=== PATIENT | female | born 1955 | race Caucasian/White ===

== ENCOUNTER 2021-05-11 19:20 | Inpatient (IN) | payer OTHER, BC ==
[2021-05-11] MEDS ORDERED: Acetaminophen 500 MG TAB PO PRN (22:45)
[2021-05-11] MEDS ORDERED: Melatonin 3 MG TAB PO SCH (23:00)
[2021-05-11] MEDS ORDERED: Simvastatin 10 MG TAB PO SCH (23:00)
[2021-05-11] MEDS ORDERED: Gabapentin 100 MG CAP PO SCH (23:00)
[2021-05-11] MEDS ORDERED: tiZANidine HCl 4 MG TAB PO SCH (23:00)
[2021-05-11] MEDS: HYDROcodone/Acetaminophen 5/325 mg Tablet PO PRN (23:01)
[2021-05-12 06:10] LABS: #Basophils 0.1 thou/uL (0.0-0.2); #Eosinphils 0.3 thou/uL (0.0-0.7); #Lymphocytes 1.3 thou/uL (1.20-3.40); #Monocytes 0.6 thou/uL (0.11-0.59); #Neutrophils 2.4 thou/uL (1.40-6.50); %Basophils 1.2 % (0.0-1.0); %Eosinophils 7.2 % (0.0-10.0); %Lymphocytes 26.9 % (21.0-51.0); %Monocytes 12.9 % (0.0-10.0); %Neutrophils 51.8 % (42.0-75.0); Hemoglobin 7.8 g/dL (12.0-16.0); Mean Corpuscular Volume 96.8 fL (78.0-98.0); Mean Platelet Volume 5.1 fL (7.4-10.4); Platelet Count 381 thou/uL (130-400); RBC Distribution Width 14.3 % (11.5-14.5); White Blood Cell (WBC) Count 4.7 thou/uL (4.8-10.8)
[2021-05-12 07:21] LABS: SARS-CoV-2 NAA Rapid Test Not Detected (NotDetected)
[2021-05-12] MEDS: Folic Acid 1 MG TAB PO SCH (08:13)
[2021-05-12] MEDS: Multivitamin W/ Minerals 1 TAB PO SCH (08:13)
[2021-05-12] MEDS: Gabapentin 100 MG CAP PO SCH ×3 (08:15→21:31)
[2021-05-12] MEDS: Thiamine 100 MG TAB PO SCH (08:15)
[2021-05-12] MEDS: Aspirin Chewable 81 MG TAB PO SCH (08:21)
[2021-05-12] MEDS: traMADol HCl 50 MG TAB PO PRN (09:00)
[2021-05-12] MEDS: HYDROcodone/Acetaminophen 5/325 mg Tablet PO PRN ×2 (13:59→21:32)
[2021-05-12] MEDS: Nicotine 14 MG PATCH TD SCH (14:03)
[2021-05-12] MEDS: Calcium Carbonate 600 MG + Vit D TAB PO SCH (17:11)
[2021-05-12] MEDS: Melatonin 3 MG TAB PO SCH (21:33)
[2021-05-12] MEDS: tiZANidine HCl 4 MG TAB PO SCH (21:33)
[2021-05-12] MEDS: Simvastatin 10 MG TAB PO SCH (21:33)
[2021-05-13 06:40] LABS: #Basophils 0.1 thou/uL (0.0-0.2); #Eosinphils 0.3 thou/uL (0.0-0.7); #Lymphocytes 1.5 thou/uL (1.20-3.40); #Monocytes 0.6 thou/uL (0.11-0.59); #Neutrophils 2.6 thou/uL (1.40-6.50); %Basophils 1.6 % (0.0-1.0); %Eosinophils 6.4 % (0.0-10.0); %Lymphocytes 29.4 % (21.0-51.0); %Monocytes 10.8 % (0.0-10.0); %Neutrophils 51.8 % (42.0-75.0); Hemoglobin 7.8 g/dL (12.0-16.0); Mean Corpuscular HGB CONC 32.3 g/dL (32.0-36.0); Mean Corpuscular Hemoglobin 31.6 pg (27.0-31.0); Mean Corpuscular Volume 97.7 fL (78.0-98.0); Mean Platelet Volume 5.3 fL (7.4-10.4); Platelet Count 397 thou/uL (130-400); RBC Distribution Width 14.5 % (11.5-14.5); Red Blood Cell (RBC) Count 2.48 mill/uL (4.20-5.40); White Blood Cell (WBC) Count 5.1 thou/uL (4.8-10.8)
[2021-05-13] MEDS: Multivitamin W/ Minerals 1 TAB PO SCH (07:59)
[2021-05-13] MEDS: Gabapentin 100 MG CAP PO SCH ×3 (07:59→21:28)
[2021-05-13] MEDS: Aspirin Chewable 81 MG TAB PO SCH (07:59)
[2021-05-13] MEDS: Calcium Carbonate 600 MG + Vit D TAB PO SCH ×2 (08:00→17:22)
[2021-05-13] MEDS: Thiamine 100 MG TAB PO SCH (08:00)
[2021-05-13] MEDS: HYDROcodone/Acetaminophen 5/325 mg Tablet PO PRN ×2 (08:01→21:28)
[2021-05-13] MEDS: Folic Acid 1 MG TAB PO SCH (08:01)
[2021-05-13] MEDS: Nicotine 14 MG PATCH TD SCH (14:04)
[2021-05-13] MEDS: Melatonin 3 MG TAB PO SCH (21:27)
[2021-05-13] MEDS: tiZANidine HCl 4 MG TAB PO SCH (21:28)
[2021-05-13] MEDS: Simvastatin 10 MG TAB PO SCH (21:31)
[2021-05-14] MEDS: Calcium Carbonate 600 MG + Vit D TAB PO SCH ×2 (08:11→17:56)
[2021-05-14] MEDS: Gabapentin 100 MG CAP PO SCH ×3 (08:11→22:17)
[2021-05-14] MEDS: Aspirin Chewable 81 MG TAB PO SCH (08:11)
[2021-05-14] MEDS: Multivitamin W/ Minerals 1 TAB PO SCH (08:12)
[2021-05-14] MEDS: Folic Acid 1 MG TAB PO SCH (08:12)
[2021-05-14] MEDS: Thiamine 100 MG TAB PO SCH (08:12)
[2021-05-14] MEDS: Nicotine 14 MG PATCH TD SCH (13:50)
[2021-05-14] MEDS: HYDROcodone/Acetaminophen 5/325 mg Tablet PO PRN (22:15)
[2021-05-14] MEDS: tiZANidine HCl 4 MG TAB PO SCH (22:16)
[2021-05-14] MEDS: Melatonin 3 MG TAB PO SCH (22:16)
[2021-05-14] MEDS: Simvastatin 10 MG TAB PO SCH (22:16)
[2021-05-15 06:16] VITALS: BMI 19.5
[2021-05-15] MEDS: Calcium Carbonate 600 MG + Vit D TAB PO SCH ×2 (08:16→17:29)
[2021-05-15] MEDS: Aspirin Chewable 81 MG TAB PO SCH (08:16)
[2021-05-15] MEDS: Thiamine 100 MG TAB PO SCH (08:17)
[2021-05-15] MEDS: Gabapentin 100 MG CAP PO SCH ×3 (08:17→21:32)
[2021-05-15] MEDS: Folic Acid 1 MG TAB PO SCH (08:18)
[2021-05-15] MEDS: Multivitamin W/ Minerals 1 TAB PO SCH (08:18)
[2021-05-15] MEDS: Nicotine 14 MG PATCH TD SCH (14:34)
[2021-05-15] MEDS: HYDROcodone/Acetaminophen 5/325 mg Tablet PO PRN (21:30)
[2021-05-15] MEDS: Simvastatin 10 MG TAB PO SCH (21:31)
[2021-05-15] MEDS: Melatonin 3 MG TAB PO SCH (21:31)
[2021-05-15] MEDS: tiZANidine HCl 4 MG TAB PO SCH (21:31)
[2021-05-16] MEDS: Calcium Carbonate 600 MG + Vit D TAB PO SCH ×2 (07:31→17:39)
[2021-05-16] MEDS: HYDROcodone/Acetaminophen 5/325 mg Tablet PO PRN ×2 (07:31→21:27)
[2021-05-16] MEDS: Gabapentin 100 MG CAP PO SCH ×3 (08:52→21:28)
[2021-05-16] MEDS: Aspirin Chewable 81 MG TAB PO SCH (08:52)
[2021-05-16] MEDS: Multivitamin W/ Minerals 1 TAB PO SCH (08:53)
[2021-05-16] MEDS: Thiamine 100 MG TAB PO SCH (08:53)
[2021-05-16] MEDS: Folic Acid 1 MG TAB PO SCH (08:53)
[2021-05-16 12:27] LABS: #Basophils 0.1 thou/uL (0.0-0.2); #Eosinphils 0.2 thou/uL (0.0-0.7); #Lymphocytes 1.2 thou/uL (1.20-3.40); #Monocytes 0.9 thou/uL (0.11-0.59); #Neutrophils 7.8 thou/uL (1.40-6.50); %Basophils 0.8 % (0.0-1.0); %Eosinophils 2.2 % (0.0-10.0); %Lymphocytes 11.6 % (21.0-51.0); %Monocytes 8.5 % (0.0-10.0); %Neutrophils 76.8 % (42.0-75.0); Hemoglobin 9.5 g/dL (12.0-16.0); Mean Corpuscular HGB CONC 31.7 g/dL (32.0-36.0); Mean Corpuscular Hemoglobin 31.6 pg (27.0-31.0); Mean Corpuscular Volume 99.8 fL (78.0-98.0); Mean Platelet Volume 5.4 fL (7.4-10.4); Platelet Count 481 thou/uL (130-400); RBC Distribution Width 15.2 % (11.5-14.5); Red Blood Cell (RBC) Count 2.99 mill/uL (4.20-5.40); White Blood Cell (WBC) Count 10.1 thou/uL (4.8-10.8)
[2021-05-16] MEDS: Nicotine 14 MG PATCH TD SCH (14:49)
[2021-05-16] MEDS: tiZANidine HCl 4 MG TAB PO SCH (21:28)
[2021-05-16] MEDS: Simvastatin 10 MG TAB PO SCH (21:28)
[2021-05-16] MEDS: Melatonin 3 MG TAB PO SCH (21:28)
[2021-05-17 07:22] LABS: #Basophils 0.1 thou/uL (0.0-0.2); #Eosinphils 0.3 thou/uL (0.0-0.7); #Lymphocytes 1.2 thou/uL (1.20-3.40); #Monocytes 0.7 thou/uL (0.11-0.59); #Neutrophils 4.1 thou/uL (1.40-6.50); %Basophils 1.4 % (0.0-1.0); %Eosinophils 4.6 % (0.0-10.0); %Lymphocytes 18.4 % (21.0-51.0); %Monocytes 11.3 % (0.0-10.0); %Neutrophils 64.2 % (42.0-75.0); Hemoglobin 8.5 g/dL (12.0-16.0); Mean Corpuscular HGB CONC 31.4 g/dL (32.0-36.0); Mean Corpuscular Hemoglobin 31.7 pg (27.0-31.0); Mean Platelet Volume 5.4 fL (7.4-10.4); Platelet Count 374 thou/uL (130-400); RBC Distribution Width 15.3 % (11.5-14.5); Red Blood Cell (RBC) Count 2.67 mill/uL (4.20-5.40); White Blood Cell (WBC) Count 6.3 thou/uL (4.8-10.8)
[2021-05-17] MEDS: Calcium Carbonate 600 MG + Vit D TAB PO SCH ×2 (08:10→17:20)
[2021-05-17] MEDS: Multivitamin W/ Minerals 1 TAB PO SCH (08:10)
[2021-05-17] MEDS: Aspirin Chewable 81 MG TAB PO SCH (08:10)
[2021-05-17] MEDS: Gabapentin 100 MG CAP PO SCH ×3 (08:10→21:37)
[2021-05-17] MEDS: traMADol HCl 50 MG TAB PO PRN (08:12)
[2021-05-17] MEDS: Thiamine 100 MG TAB PO SCH (08:12)
[2021-05-17] MEDS: Folic Acid 1 MG TAB PO SCH (08:12)
[2021-05-17] MEDS: HYDROcodone/Acetaminophen 5/325 mg Tablet PO PRN ×2 (11:19→21:38)
[2021-05-17] MEDS: Nicotine 14 MG PATCH TD SCH (14:37)
[2021-05-17] MEDS: tiZANidine HCl 4 MG TAB PO SCH (21:37)
[2021-05-17] MEDS: Melatonin 3 MG TAB PO SCH (21:37)
[2021-05-17] MEDS: Simvastatin 10 MG TAB PO SCH (21:38)
[2021-05-18] MEDS: Multivitamin W/ Minerals 1 TAB PO SCH (08:32)
[2021-05-18] MEDS: Thiamine 100 MG TAB PO SCH (08:32)
[2021-05-18] MEDS: Gabapentin 100 MG CAP PO SCH ×3 (08:32→21:38)
[2021-05-18] MEDS: Calcium Carbonate 600 MG + Vit D TAB PO SCH ×2 (08:32→17:19)
[2021-05-18] MEDS: Folic Acid 1 MG TAB PO SCH (08:33)
[2021-05-18] MEDS: Aspirin Chewable 81 MG TAB PO SCH (08:33)
[2021-05-18] MEDS: HYDROcodone/Acetaminophen 5/325 mg Tablet PO PRN ×2 (10:49→21:39)
[2021-05-18] MEDS: Nicotine 14 MG PATCH TD SCH (14:17)
[2021-05-18] MEDS: tiZANidine HCl 4 MG TAB PO SCH (21:39)
[2021-05-18] MEDS: Simvastatin 10 MG TAB PO SCH (21:39)
[2021-05-18] MEDS: Melatonin 3 MG TAB PO SCH (21:39)
[2021-05-19 06:32] LABS: #Basophils 0.1 thou/uL (0.0-0.2); #Eosinphils 0.2 thou/uL (0.0-0.7); #Lymphocytes 1.5 thou/uL (1.20-3.40); #Monocytes 0.7 thou/uL (0.11-0.59); #Neutrophils 3.1 thou/uL (1.40-6.50); %Basophils 1.2 % (0.0-1.0); %Eosinophils 3.9 % (0.0-10.0); %Lymphocytes 26.1 % (21.0-51.0); %Monocytes 13.3 % (0.0-10.0); %Neutrophils 55.4 % (42.0-75.0); Hemoglobin 8.6 g/dL (12.0-16.0); Mean Corpuscular HGB CONC 31.8 g/dL (32.0-36.0); Mean Corpuscular Hemoglobin 31.7 pg (27.0-31.0); Mean Corpuscular Volume 99.7 fL (78.0-98.0); Mean Platelet Volume 5.3 fL (7.4-10.4); Platelet Count 365 thou/uL (130-400); RBC Distribution Width 15.3 % (11.5-14.5); Red Blood Cell (RBC) Count 2.72 mill/uL (4.20-5.40); White Blood Cell (WBC) Count 5.6 thou/uL (4.8-10.8)
[2021-05-19] MEDS: Calcium Carbonate 600 MG + Vit D TAB PO SCH ×2 (08:17→18:05)
[2021-05-19] MEDS: Aspirin Chewable 81 MG TAB PO SCH (08:17)
[2021-05-19] MEDS: Thiamine 100 MG TAB PO SCH (08:17)
[2021-05-19] MEDS: Multivitamin W/ Minerals 1 TAB PO SCH (08:17)
[2021-05-19] MEDS: Folic Acid 1 MG TAB PO SCH (08:18)
[2021-05-19] MEDS: Gabapentin 100 MG CAP PO SCH ×3 (08:18→21:35)
[2021-05-19] MEDS: traMADol HCl 50 MG TAB PO PRN (09:02)
[2021-05-19] MEDS: Nicotine 14 MG PATCH TD SCH (15:28)
[2021-05-19] MEDS: Simvastatin 10 MG TAB PO SCH (21:36)
[2021-05-19] MEDS: Melatonin 3 MG TAB PO SCH (21:36)
[2021-05-19] MEDS: tiZANidine HCl 4 MG TAB PO SCH (21:36)
[2021-05-19] MEDS: HYDROcodone/Acetaminophen 5/325 mg Tablet PO PRN (21:37)
[2021-05-20] MEDS: traMADol HCl 50 MG TAB PO PRN (07:37)
[2021-05-20] MEDS: Calcium Carbonate 600 MG + Vit D TAB PO SCH ×2 (07:37→17:57)
[2021-05-20] MEDS: Aspirin Chewable 81 MG TAB PO SCH (08:50)
[2021-05-20] MEDS: Multivitamin W/ Minerals 1 TAB PO SCH (08:50)
[2021-05-20] MEDS: Thiamine 100 MG TAB PO SCH (08:50)
[2021-05-20] MEDS: Gabapentin 100 MG CAP PO SCH ×3 (08:51→21:39)
[2021-05-20] MEDS: Folic Acid 1 MG TAB PO SCH (08:51)
[2021-05-20] MEDS: Nicotine 14 MG PATCH TD SCH (14:27)
[2021-05-20 18:32] LABS: SARS-CoV-2 PCR by NAA Not Detected (NotDetected)
[2021-05-20] MEDS: Simvastatin 10 MG TAB PO SCH (21:40)
[2021-05-20] MEDS: Melatonin 3 MG TAB PO SCH (21:40)
[2021-05-20] MEDS: tiZANidine HCl 4 MG TAB PO SCH (21:41)
[2021-05-20] MEDS: HYDROcodone/Acetaminophen 5/325 mg Tablet PO PRN (21:41)
[2021-05-21 07:05] LABS: #Basophils 0.1 thou/uL (0.0-0.2); #Eosinphils 0.2 thou/uL (0.0-0.7); #Lymphocytes 1.1 thou/uL (1.20-3.40); #Monocytes 0.6 thou/uL (0.11-0.59); #Neutrophils 2.4 thou/uL (1.40-6.50); %Basophils 1.2 % (0.0-1.0); %Eosinophils 4.7 % (0.0-10.0); %Lymphocytes 25.4 % (21.0-51.0); %Monocytes 12.7 % (0.0-10.0); Hemoglobin 8.2 g/dL (12.0-16.0); Mean Corpuscular HGB CONC 32.7 g/dL (32.0-36.0); Mean Corpuscular Hemoglobin 32.1 pg (27.0-31.0); Mean Platelet Volume 5.4 fL (7.4-10.4); Platelet Count 345 thou/uL (130-400); RBC Distribution Width 14.6 % (11.5-14.5); Red Blood Cell (RBC) Count 2.55 mill/uL (4.20-5.40); White Blood Cell (WBC) Count 4.3 thou/uL (4.8-10.8)
[2021-05-21] MEDS: Gabapentin 100 MG CAP PO SCH ×3 (08:17→22:08)
[2021-05-21] MEDS: Aspirin Chewable 81 MG TAB PO SCH (08:17)
[2021-05-21] MEDS: Calcium Carbonate 600 MG + Vit D TAB PO SCH ×2 (08:17→17:33)
[2021-05-21] MEDS: Folic Acid 1 MG TAB PO SCH (08:17)
[2021-05-21] MEDS: Thiamine 100 MG TAB PO SCH (08:18)
[2021-05-21] MEDS: Multivitamin W/ Minerals 1 TAB PO SCH (08:18)
[2021-05-21] MEDS: Nicotine 14 MG PATCH TD SCH (14:14)
[2021-05-21] MEDS: Melatonin 3 MG TAB PO SCH (22:08)
[2021-05-21] MEDS: tiZANidine HCl 4 MG TAB PO SCH (22:09)
[2021-05-21] MEDS: Simvastatin 10 MG TAB PO SCH (22:09)
[2021-05-22] MEDS: Folic Acid 1 MG TAB PO SCH (08:39)
[2021-05-22] MEDS: Gabapentin 100 MG CAP PO SCH ×3 (08:39→21:38)
[2021-05-22] MEDS: Aspirin Chewable 81 MG TAB PO SCH (08:39)
[2021-05-22] MEDS: Calcium Carbonate 600 MG + Vit D TAB PO SCH ×2 (08:39→17:40)
[2021-05-22] MEDS: Thiamine 100 MG TAB PO SCH (08:41)
[2021-05-22] MEDS: Multivitamin W/ Minerals 1 TAB PO SCH (08:41)
[2021-05-22] MEDS: Nicotine 14 MG PATCH TD SCH (14:19)
[2021-05-22] MEDS: Simvastatin 10 MG TAB PO SCH (21:38)
[2021-05-22] MEDS: tiZANidine HCl 4 MG TAB PO SCH (21:40)
[2021-05-22] MEDS: Melatonin 3 MG TAB PO SCH (21:40)
[2021-05-23] MEDS: Gabapentin 100 MG CAP PO SCH ×3 (08:10→21:32)
[2021-05-23] MEDS: Thiamine 100 MG TAB PO SCH (08:10)
[2021-05-23] MEDS: Calcium Carbonate 600 MG + Vit D TAB PO SCH ×2 (08:11→17:13)
[2021-05-23] MEDS: Folic Acid 1 MG TAB PO SCH (08:11)
[2021-05-23] MEDS: Multivitamin W/ Minerals 1 TAB PO SCH (08:11)
[2021-05-23] MEDS: Aspirin Chewable 81 MG TAB PO SCH (08:11)
[2021-05-23] MEDS: traMADol HCl 50 MG TAB PO PRN (10:36)
[2021-05-23] MEDS: Nicotine 14 MG PATCH TD SCH (14:55)
[2021-05-23] MEDS: tiZANidine HCl 4 MG TAB PO SCH (21:33)
[2021-05-23] MEDS: Melatonin 3 MG TAB PO SCH (21:33)
[2021-05-23] MEDS: Simvastatin 10 MG TAB PO SCH (21:33)
[2021-05-24] MEDS: Calcium Carbonate 600 MG + Vit D TAB PO SCH (07:44)
[2021-05-24 08:01] VITALS: BP 130/83; TEMP 97.8
[2021-05-24] MEDS: Folic Acid 1 MG TAB PO SCH (09:53)
[2021-05-24] MEDS: Multivitamin W/ Minerals 1 TAB PO SCH (09:53)
[2021-05-24] MEDS: Gabapentin 100 MG CAP PO SCH (09:53)
[2021-05-24] MEDS: Aspirin Chewable 81 MG TAB PO SCH (09:53)
[2021-05-24] MEDS: Thiamine 100 MG TAB PO SCH (09:53)
== END 2021-05-24 11:15 | disposition home or self-care (01) | DRG 560 ==
LOC: NAV ACUTE 19:20
PROVIDERS: ADMIT Family Medicine; ATTEND Family Medicine
DX: S32.592D Other specified fracture of left pubis, subsequent encounter for fracture with routine healing (principal); K92.2 Gastrointestinal hemorrhage, unspecified; F32.0 Major depressive disorder, single episode, mild; L97.929 Non-pressure chronic ulcer of unspecified part of left lower leg with unspecified severity; E87.2 Acidosis; D64.9 Anemia, unspecified; Z20.822 Contact with and (suspected) exposure to COVID-19; R53.1 Weakness; I10 Essential (primary) hypertension; M19.90 Unspecified osteoarthritis, unspecified site; G89.29 Other chronic pain; J44.9 Chronic obstructive pulmonary disease, unspecified; M81.0 Age-related osteoporosis without current pathological fracture; M41.9 Scoliosis, unspecified; E78.2 Mixed hyperlipidemia; G47.00 Insomnia, unspecified; Z96.643 Presence of artificial hip joint, bilateral; F17.210 Nicotine dependence, cigarettes, uncomplicated; W01.0XXD Fall on same level from slipping, tripping and stumbling without subsequent striking against object, subsequent encounter; I83.029 Varicose veins of left lower extremity with ulcer of unspecified site; J41.0 Simple chronic bronchitis; Z79.82 Long term (current) use of aspirin; S32.19XD Other fracture of sacrum, subsequent encounter for fracture with routine healing; S72.092D Other fracture of head and neck of left femur, subsequent encounter for closed fracture with routine healing; Z79.899 Other long term (current) drug therapy; Z98.51 Tubal ligation status
CPT/HCPCS: 36415; 85025; U0002; U0003; U0005

== ENCOUNTER 2024-05-28 17:45 | Inpatient (IN) | payer BC, MEDICARE ==
[2024-05-29 15:51] VITALS: BMI 20.2
[2024-05-29] MEDS ORDERED: Ondansetron ODT 4 MG TAB SL PRN (17:22)
[2024-05-29] MEDS ORDERED: Senokot S 8.6-50 MG TAB PO PRN (17:22)
[2024-05-29] MEDS: Calcium Carbonate 500 MG ChewTAB PO PRN (18:03)
[2024-05-29] MEDS: FLU (Fluad Triv) TS24-25 (65UP)/MF59C/PF 45 MCG/0.5 ML Syringe IM ONE (19:28)
[2024-05-29] MEDS: Acetaminophen 325 MG TAB PO PRN (21:03)
[2024-05-29] MEDS: Simvastatin 10 MG TAB PO SCH (21:04)
[2024-05-29] MEDS: Metoprolol Tartrate 25 MG TAB PO SCH (21:04)
[2024-05-29] MEDS: Melatonin 3 MG TAB PO PRN (21:12)
[2024-05-30] MEDS: oxyCODONE 5 MG TAB PO PRN (04:09)
[2024-05-30 06:06] LABS: #Eosinophils 0.1 thou/uL (0.0-0.7); #Monocytes 1.4 thou/uL (0.11-0.59); #Neutrophils 8.9 thou/uL (1.40-6.50); %Basophils 0.4 % (0.0-1.0); %Eosinophils 0.8 % (0.0-10.0); %Lymphocytes 8.4 % (21.0-51.0); %Neutrophils 78.4 % (42.0-75.0); Hematocrit 35.5 % (36.0-47.0); Hemoglobin 11.2 g/dL (12.0-16.0); Mean Corpuscular HGB CONC 31.6 g/dL (32.0-36.0); Mean Corpuscular Hemoglobin 31.6 pg (27.0-31.0); Mean Corpuscular Volume 99.8 fl (78.0-98.0); Mean Platelet Volume 6.8 fL (7.4-10.4); Platelet Count 310 10x3/uL (130-400); RBC Distribution Width 11.8 % (11.5-14.5); Red Blood Cell (RBC) Count 3.55 mill/uL (4.20-5.40); White Blood Cell (WBC) Count 11.4 10x3/uL (4.8-10.8)
[2024-05-30 06:19] LABS: ALT (SGPT) 14 U/L (Less than 34); AST (SGOT) 21 U/L (11-34); Albumin 2.7 g/dL (3.1-4.5); Alkaline Phosphatase 259 U/L (40-110); Anion Gap 14 mmol/L (10-20); BUN (Urea Nitrogen) 22 mg/dL (9.8-20.1); Bilirubin, Total 1.4 mg/dL (0.3-1.2); Calc. Creatinine Clearance 46 mL/min (70-130); Carbon Dioxide 23 mmol/L (23-31); Chloride 103 mmol/L (98-107); Estimated GFR 58; Glucose 87 mg/dL (80-115); Potassium 3.8 mmol/L (3.5-5.1); Protein, Total 5.7 g/dL (5.8-8.1); Sodium 136 mmol/L (136-145)
[2024-05-30] MEDS: Thiamine 100 MG TAB PO SCH (08:38)
[2024-05-30] MEDS: Cholecalciferol 1,000 UNITS (25 MCG) TAB PO SCH (08:38)
[2024-05-30] MEDS: Aspirin 81 mg Enteric Coated Tablet PO SCH (08:38)
[2024-05-30] MEDS: Polyethylene Glycol 3350 17 GM Packet PO SCH (08:39)
[2024-05-30] MEDS: Senokot S 8.6-50 MG TAB PO SCH (09:50)
[2024-05-30 12:22] VITALS: BMI 20.2
[2024-05-31 05:31] LABS: #Basophils 0.1 thou/uL (0.0-0.2); #Eosinophils 0.1 thou/uL (0.0-0.7); #Lymphocytes 1.3 thou/uL (1.20-3.40); #Monocytes 1.4 thou/uL (0.11-0.59); #Neutrophils 6.9 thou/uL (1.40-6.50); %Basophils 0.6 % (0.0-1.0); %Eosinophils 1.3 % (0.0-10.0); %Lymphocytes 13.1 % (21.0-51.0); %Monocytes 14.3 % (0.0-10.0); %Neutrophils 70.7 % (42.0-75.0); Hemoglobin 11.4 g/dL (12.0-16.0); Mean Corpuscular HGB CONC 31.7 g/dL (32.0-36.0); Mean Corpuscular Hemoglobin 31.7 pg (27.0-31.0); Mean Platelet Volume 6.6 fL (7.4-10.4); Platelet Count 313 10x3/uL (130-400); RBC Distribution Width 11.5 % (11.5-14.5); White Blood Cell (WBC) Count 9.8 10x3/uL (4.8-10.8)
[2024-05-31 20:00] VITALS: BP 105/53; TEMP 98
[2024-05-31] MEDS: Metoprolol Tartrate 25 MG TAB PO SCH (20:02)
== END 2024-05-31 23:30 | disposition short-term general hospital (02) | DRG 945 ==
LOC: UNDOADMIN 05-29 14:52 → NAV ACUTE 05-29 14:52 → UNDOADMIN 05-29 17:00
PROVIDERS: ADMIT Family Medicine; ATTEND Family Medicine
PROC: F07Z9ZZ Gait Training/Functional Ambulation Treatment (ICD-10-PCS; principal; 2024-05-29)
DX: R53.81 Other malaise (principal); I47.10 Supraventricular tachycardia, unspecified; N18.4 Chronic kidney disease, stage 4 (severe); M62.81 Muscle weakness (generalized); K83.8 Other specified diseases of biliary tract; J44.9 Chronic obstructive pulmonary disease, unspecified; I10 Essential (primary) hypertension; D50.0 Iron deficiency anemia secondary to blood loss (chronic); F17.210 Nicotine dependence, cigarettes, uncomplicated; J45.909 Unspecified asthma, uncomplicated; D63.8 Anemia in other chronic diseases classified elsewhere; I12.9 Hypertensive chronic kidney disease with stage 1 through stage 4 chronic kidney disease, or unspecified chronic kidney disease; E78.5 Hyperlipidemia, unspecified; G47.00 Insomnia, unspecified; Z96.651 Presence of right artificial knee joint; Z98.51 Tubal ligation status; Z90.49 Acquired absence of other specified parts of digestive tract; Z98.41 Cataract extraction status, right eye; Z98.42 Cataract extraction status, left eye; Z98.890 Other specified postprocedural states; Z88.8 Allergy status to other drugs, medicaments and biological substances
CPT/HCPCS: 36415; 74018; 80053; 85025